=== PATIENT | female | born 1950 | race Caucasian/White ===

== ENCOUNTER → 2017-10-09 | Outpatient (CLI) | payer OTHER ==
[~2017-10-09] VITALS: Ht 160 cm; Wt 70.3 kg
[~2017-10-09] MED LIST: BENADRYL25 MG PO; IMODIUM A-D2 M2 PO; LEVO-T50 MCG PO; LIPITOR40 MG PO; ZESTORETIC 20-1 EAC1 PO
[2017-10-09 08:50] LABS: CHLORIDE 105 MEQ/L (99-109); CREATININE 0.8 MG/DL (0.6-1.3); GFR ESTIMATE (CALCULATED) > 59 mL/min/; GLUCOSE 109 mg/dL (70-99); POTASSIUM 3.9 MEQ/L (3.7-5.4); SODIUM 138 MEQ/L (136-147); UREA NITROGEN (BUN) 18 mg/dL (9-23)
== END | disposition home or self-care (01) ==
LOC: AMB 07:17
PROVIDERS: Anesthesiology
DX: K22.2 Esophageal obstruction (principal); R07.89 Other chest pain; E78.5 Hyperlipidemia, unspecified; E03.9 Hypothyroidism, unspecified; K58.9 Irritable bowel syndrome, unspecified; M06.9 Rheumatoid arthritis, unspecified; Z80.0 Family history of malignant neoplasm of digestive organs; Z83.3 Family history of diabetes mellitus; Z82.61 Family history of arthritis; Z82.49 Family history of ischemic heart disease and other diseases of the circulatory system; Z88.8 Allergy status to other drugs, medicaments and biological substances
CPT/HCPCS: 80048; 88305; 93005

== ENCOUNTER 2017-10-25 19:37 | Emergency (ER) | payer OTHER ==
[~2017-10-25] VITALS: Ht 160 cm; Wt 70.4 kg
[2017-10-25 22:14] VITALS: BP 138/85
== END 2017-10-25 22:23 | disposition home or self-care (01) ==
LOC: EME 19:37 → RME 19:37
DX: S16.1XXA Strain of muscle, fascia and tendon at neck level, initial encounter (principal); G44.209 Tension-type headache, unspecified, not intractable; V49.40XA Driver injured in collision with unspecified motor vehicles in traffic accident, initial encounter; Y92.410 Unspecified street and highway as the place of occurrence of the external cause
CPT/HCPCS: 72050; 99281; 99283